=== PATIENT | female | born 1965 | race Caucasian/White ===

== ENCOUNTER 2024-04-15 16:59 | Emergency (ER) | payer BC, SELFPAY ==
--- NOTE | ~2024-04-15 | US_ITS ---
EXAMINATION: US transvaginal DATE: 04/15/2024 17:58 INDICATION: vaginal bleeding IUD placed 6 wk ago TECHNIQUE: Multiple transabdominal and endovaginal sonographic images of the pelvis were obtained. COMPARISON: None. FINDINGS: Uterus: 9.6 x 6.2 x 7.5 cm. Retroverted and retroflexed. IUD, in good position. Endometrial complex 1 3 mm. Right Ovary: 1.9 x 1.2 x 1.5 cm. Vascular flow is present. No adnexal mass. Left Ovary: 2.1 x 1.2 x 1.5 cm. Vascular flow is present. No adnexal mass. There is no free fluid in the pelvis. IMPRESSION: IUD, in good position. 13 mm thick endometrial complex, still within normal limits for the secretory phase in a premenopausal patient. Reviewed, dictated and finalized at location K. IMPRESSION: IUD, in good position. 13 mm thick endometrial complex, still within normal mcconnell its for the secretory phase in a premenopausal patient.
[2024-04-15 17:02] VITALS: BP 161/84; PULSE 84; RESP 20; TEMP 37.2; O2SAT 100
--- NOTE | 2024-04-15 17:20 | ED.FEMALEGU ---
HPI - Female Genitourinary General Chief complaint: Vaginal Bleeding Stated complaint: VAG BLEEDING, SCHEDULED FOR D&C 04/17 Time Seen by Provider: 04/15/24 17:11 History of Present Illness HPI Narrative: Pt presents with intermittent vaginal bleeding for months. Pt is scheduled for a D & C in two days. Pt had and IUD placed 6 weeks ago for the bleeding and had placement rechecked in [facility] office by sherlyn two weeks ago. Pt states that the bleeding increased over last 4 days accompanied by pelvic pain which is much more significant than it has been. Pt says the pain is making her vomit. Related Data Home Medications Medication Instructions Recorded Confirmed alprazolam 0.25 mg tablet (Xanax) 0.125 mg PO DAILY PRN 04/09/24 04/09/24 esomeprazole magnesium 20 mg 20 mg PO DAILY 04/09/24 04/09/24 capsule,delayed release (Nexium 24HR) estradiol 1 mg tablet 1 mg PO DAILY 04/09/24 04/09/24 metoprolol succinate 25 mg 25 mg PO DAILY 04/09/24 04/09/24 tablet,extended release 24 hr norethindrone acetate 5 mg tablet 5 mg PO DAILY 04/09/24 04/09/24 Allergies Allergy/AdvReac Type Severity Reaction Status Date / Time codeine Allergy Anaphylaxis Verified 04/15/24 17:11 ibuprofen Allergy Anaphylaxis Verified 04/15/24 17:11 Penicillins Allergy Anaphylaxis Verified 04/15/24 17:11 Sulfa (Sulfonamide Allergy Anaphylaxis Verified 04/15/24 17:11 Antibiotics) Review of Systems Review of Systems: All systems reviewed & are unremarkable except as noted in HPI and below PMFSH Past Medical History Medical History (Updated 04/15/24 @ 18:41 by Nila Conley III, DO) Chronic GERD Family History Family History (Updated 04/09/24 @ 14:20 by Daisy Rebolledo MA) Mother Cervical cancer Grandparent Myocardial infarction Social History Social History (Updated 04/09/24 @ 14:23 by Daisy Rebolledo MA) Years smoked: 10 Smoking status: Former smoker Additional smoking assessment comments: STOPPED AT AGE 31 Alcohol intake: current Alcohol use details: 1 DRINK EVERY THREE MONTHS / Occasional Wine Substance use: never Substance use type: does not use Do You Feel Safe in your Home?: Yes Lack of Transportation: No Lack of Food: Never True Current Housing: I Have Housing Concerned About Future Housing: No Difficulty Paying Gas/Electric Bills: No Difficulty Paying for Meds: No Currently Unemployed: No Education: Bachelor's Degree Difficulty w/ Childcare or Family Care: No Living arrangements: with family 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 identity (if verbalized by the patient): Female Agree to blood products: Yes Exam Const: General: healthy appearing and no acute distress Nutritional Appearance: well nourished Orientation/consciousness: patient oriented x3 Limitations: no limitations Eyes: Conjunctivae: conjunctivae normal EOM: EOMs intact bilaterally Neck: Neck: normal visual inspection Resp: Effort & Inspection: normal respiratory effort Auscultation: clear to auscultation bilaterally Cardio: Rate: regular rate Rhythm: regular rhythm GI: GI Palp: Yes Soft to palpation and Yes Tenderness to palpation present (GI) (low abdomen over uterus) Auscultation: normal bowel sounds Skin: General skin exam: normal color Rashes: no rashes Wounds: no wounds Neuro: General: patient oriented x3, moves all extremities, no meningeal signs and no focal motor deficits Speech: normal speech Extrem: General: normal to inspection and no clubbing, cyanosis or edema Psych: Appearance: grossly normal Mental Status: mental status grossly normal Affect: normal affect Attitude: cooperative Course Vital Signs Vital signs: Vital Signs Temperature 98.9 F 04/15/24 17:02 Pulse Rate 84 04/15/24 17:02 Respiratory Rate 20 04/15/24 17:02 Blood Pressure 161/84 H 04/15/24 17:02 Pulse Oximetry 100 04/15/24 17:02 Ox
[2024-04-15 17:27] LABS: Basophils Absolute Auto 0.1 K/mm3 (0.0-0.1); Basophils Percent Auto 0.4 % (0.2-1.2); Eosinophils Absolute Auto 0.2 K/mm3 (0-0.3); Eosinophils Percent Auto 1.4 % (0-4.4); Hematocrit 34.2 % (37.0-47.0); Hemoglobin 11.6 g/dL (12.0-15.0); Immature Granulocyte Absolute 0.08 K/mm3 (0.00-0.031); Immature Granulocyte Percent A 0.6 % (0-0.5); Lymphocytes Absolute Auto 2.27 K/mm3 (0.9-3.2); Lymphocytes Percent Auto 17.2 % (18.3-44.2); Mean Corpuscular HGB Conc 33.9 g/dl (32-36); Mean Corpuscular Hemoglobin 30.1 pg (26-34); Mean Corpuscular Volume 88.6 fl (80-100); Mean Platelet Volume 8.5 fl (7.4-10.4); Monocytes Absolute Auto 0.7 K/mm3 (0.1-0.6); Monocytes Percent Auto 5.3 % (2.6-8.5); Neutrophils Absolute Auto 9.9 K/mm3 (1.3-6.7); Neutrophils Percent Auto 75.1 % (45.5-73.1); Platelet Count Result 348 k/mm3 (150-375); Red Blood Count 3.86 M/mm3 (4.2-5.4); Red Cell Distribution Width 12.1 % (11.5-14.5); White Blood Count 13.2 K/mm3 (4.5-10.0)
[2024-04-15] MEDS: SODIUM CHLORIDE 0.9% IV 1,000 ML 999 ML IV CONT (17:32)
[2024-04-15] MEDS: ONDANSETRON INJ 4 MG/2 ML VIAL IV PUSH (17:33)
[2024-04-15] MEDS: fentaNYL CITRATE INJ (*CRX) 100 MCG/2 ML VIAL 50 MCG IV PUSH (17:34)
[2024-04-15 17:38] LABS: Alanine Aminotransferase 11 U/L (6-35); Albumin Level 4.8 g/dL (3.5-5.1); Alkaline Phosphatase 50 U/L (38-126); Anion Gap 11 mmol/L (4-12); Aspartate Amino Transferase 17 U/L (14-36); Bilirubin,Total 0.7 mg/dL (0.2-1.3); Blood Urea Nitrogen 6 mg/dL (7-17); Calcium 9.3 mg/dL (8.4-10.2); Carbon Dioxide 20 mmol/L (22-30); Chloride 108 mmol/L (98-107); Estimated CRCL calculation 79 ml/min; Estimated Glomerular Filt Rate > 60; Glucose 108 mg/dL (65-110); Potassium 3.8 mmol/L (3.4-5.0); Sodium 139 mmol/L (137-145)
[2024-04-15 17:39] LABS: Partial Thromboplastin Time 27.3 Seconds (22.3-36.8); Prothrombin Time 13.6 Seconds (11.1-14.7)
[2024-04-15 18:04] VITALS: BP 137/72; PULSE 78; RESP 16; O2SAT 97
[2024-04-15] MEDS: HYDROmorphone HCL INJ (*CRX) 1 MG/ML SYR 0.5 MG IV PUSH ×2 (18:13→18:48)
== END 2024-04-15 18:55 | disposition home or self-care (01) ==
PROVIDERS: Physician Assistant; Emergency Provider Emergency Medicine; PCP Nurse Practitioner Adult Health
DX: N93.9 Abnormal uterine and vaginal bleeding, unspecified (principal); R10.2 Pelvic and perineal pain; K21.9 Gastro-esophageal reflux disease without esophagitis; Z97.5 Presence of (intrauterine) contraceptive device; Z87.891 Personal history of nicotine dependence
CPT/HCPCS: 36415; 76830; 80053; 85025; 85610; 85730; 86850; 86900; 86901; 96361; 96374; 96375; 96376; 99284; J1170; J2405; J3010; J7030

== ENCOUNTER 2024-04-17 00:12 | Day surgery (SDC) | payer BC, SELFPAY ==
[2024-04-09 13:27] VITALS: BMI 32.8
--- NOTE | 2024-04-09 13:33 | PC.NURSE ---
Report to the Outpatient Waiting Room, entrance under the green pavilion located off [facility], at time ___1000____ on date 04/17/24__. Planned Procedure Time: __1200_. Time changes happen often and if your time is changed the preop area will call you the afternoon before. - You and your visitor will be asked to self-screen and do not enter if you have any COVID symptoms. - A mask is optional within the hospital at this time. Patients may have clear liquids (water, carbonated beverages, clear teas, apple juice) until 3 hours prior to surgery with a maximum of 20 ounces. - No food from midnight until time of surgery - Infants may have breast milk until 4 hours before surgery, infant formula 6 hours prior to surgery. - Children will be allowed to drink immediately following surgery. If applicable, please bring a bottle or sippy cup to assist with drinking. Juice, water, soda, and popsicles are readily available. For infants on formula, please bring formula the day of surgery. Pacifiers are allowed. Take the following medications with a SIP of water the morning of surgery: METOPROLOL DO NOT STOP ANY OF YOUR OTHER PRESCRIPTION MEDICATIONS PRIOR TO SURGERY ?EXCEPT THE FOLLOWING Medications to discontinue per physician NONE Date to take last dose Please no make-up, nail palauan, hairspray, perfume, deodorant, or body powder the day of surgery. No jewelry (including any body piercings) or valuables the day of surgery, leave them at home. Please take a shower or bath the night before, or the morning of, surgery with an antibacterial soap. Wear comfortable, loose fitting clothing. Children are encouraged to wear pajamas. - Jewelry must be removed prior to entering the operating room. Rings and piercings that are not removed may be cut off. - The hospital will not accept responsibility for valuables. - Please leave all valuables, including medications, at home the day of surgery. If you are going home after surgery, a licensed driver service technician must drive you home. - NO public transportation without another adult if you receive anesthesia. - We recommend that an adult stay with you for 24 hours following discharge. - We also recommend that you do not drive, make important decision, drink alcoholic beverages, or take any drugs that were not prescribed by your health care provider for at least 24 hours after your discharge time. For Pediatric surgeries, we recommend two adults accompany the child home. Follow any additional instructions given to you from your surgeon. If you or anyone in your household have experienced Covid symptoms in the past week, please notify your surgeon or the nurse liaison at the phone number below for possible testing. Telephone instructions given to PATIENT_and asked if any additional questions and then verbalized understanding. Patient advised to call surgeon office or pre surgery nurse liaison [phone] if any additional questions.
[2024-04-17 10:19] VITALS: BP 147/81; PULSE 84; RESP 16; TEMP 37.3; O2SAT 100
[2024-04-17 10:20] VITALS: BMI 31.8
[2024-04-17] MEDS: LACTATED RINGERS 1,000 ML 30 ML IV CONT (10:52)
[2024-04-17] MEDS: ACETAMINOPHEN 500 MG TABLET 1000 MG PO (10:53)
--- NOTE | 2024-04-17 11:36 | WPDANESEPPF ---
Anes - Initial Pre Proc Eval Procedure: Operation Date: 04/17/24 12:00 Proposed Procedures p Hysteroscopy Dilation and Curettage - Juan Johnson MD Date/Time: 04/17/24 11:36 Surgeon: Juan Johnson MD Pre Op Diagnosis: Post Menopausal Bleeding Patient Data Age: 58 Gender: F Height: 1.7 m Weight: 92.3 kg Last Vital Signs Temp 99.1 F 04/17/24 10:19 Pulse 84 04/17/24 10:19 Resp 16 04/17/24 10:19 BP 147/81 H 04/17/24 10:19 Pulse Ox 100 04/17/24 10:19 Allergies Allergy/AdvReac Type Severity Reaction Status Date / Time codeine Allergy Anaphylaxis Verified 04/17/24 10:45 ibuprofen Allergy Anaphylaxis Verified 04/17/24 10:45 Penicillins Allergy Anaphylaxis Verified 04/17/24 10:45 Sulfa (Sulfonamide Allergy Anaphylaxis Verified 04/17/24 10:45 Antibiotics) Home Medications Medication Instructions Recorded Confirmed Type alprazolam 0.25 mg tablet (Xanax) 0.125 mg PO DAILY PRN Anxiety 04/09/24 04/17/24 History esomeprazole magnesium 20 mg 20 mg PO DAILY 04/09/24 04/17/24 History capsule,delayed release (Nexium 24HR) estradiol 1 mg tablet 1 mg PO DAILY 04/09/24 04/17/24 History metoprolol succinate 25 mg 25 mg PO DAILY 04/09/24 04/17/24 History tablet,extended release 24 hr norethindrone acetate 5 mg tablet 5 mg PO DAILY 04/09/24 04/17/24 History oxycodone-acetaminophen 5 mg-325 1 tablet PO Q6H PRN pain #14 tabs 04/15/24 04/17/24 Rx mg tablet (Percocet) Patient hx anesthesia problems: none Family hx anesthesia problems: none Results Review: All pre-operative results and documents have been reviewed as part of the pre-operative evaluation. [facility] Past Medical History Medical History Chronic GERD Family History Family History Mother Cervical cancer Grandparent Myocardial infarction Social History Social History Years smoked: 10 Smoking status: Former smoker Additional smoking assessment comments: STOPPED AT AGE 31 Alcohol intake: current Alcohol use details: 1 DRINK EVERY THREE MONTHS / Occasional Wine Substance use: never Substance use type: does not use Do You Feel Safe in your Home?: Yes Lack of Transportation: No Lack of Food: Never True Current Housing: I Have Housing Concerned About Future Housing: No Difficulty Paying Gas/Electric Bills: No Difficulty Paying for Meds: No Currently Unemployed: No Education: Bachelor's Degree Difficulty w/ Childcare or Family Care: No Living arrangements: with family 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 identity (if verbalized by the patient): Female Agree to blood products: Yes Anes - Eval Final PreProcedure Day of Procedure 04/17/24 11:36 Patient weight: overweight Heart: regular rate and rhythm Lungs: clear to auscultation Airway: Mallampati scale Neurological: alert and oriented Last oral intake: >/= 8 hours ASA classification: II Emergent: no Anesthetic plan: proceed Anesthesia type and monitoring: general GIVS and standard monitoring Results Review: All pre-operative results and documents have been reviewed as part of the pre-operative evaluation. Pt on b beni for electrical disorder , has been on for many (20 years), and walks 4 miles/day, no cp or sob. Informed Consent: The patient's anesthetic plan and its attendant risks and benefits were discussed with the patient/family/POA. Questions were solicited and answers provided to the satisfaction of the patient/family/POA.
--- NOTE | 2024-04-17 11:58 | PM.IMHP ---
H&P: HPI History of Present Illness Date/Time: 04/17/24 11:58 Chief Complaint: postmenopausal bleeding Narrative: Patient is a 58 year old female who presents with postmenopausal bleeding. She reports episodes of bleeding following unopposed estrogen HRT x2 years. EMB demonstrated disordered proliferative endometrium and IUD was placed for bleeding control and endometrial protection without improvement. She has continued to have intermittently heavy bleeding since IUD placement. Endometrial lining has thickened since prior ultrasound. Denies headaches, vision changes. Abdominal pain and vomiting since last week. Review of Systems Review of Systems: All systems reviewed & are unremarkable except as noted in HPI and below PMFSH Past Medical History Medical History Chronic GERD Family History Family History Mother Cervical cancer Grandparent Myocardial infarction Social History Social History Years smoked: 10 Smoking status: Former smoker Additional smoking assessment comments: STOPPED AT AGE 31 Alcohol intake: current Alcohol use details: 1 DRINK EVERY THREE MONTHS / Occasional Wine Substance use: never Substance use type: does not use Do You Feel Safe in your Home?: Yes Lack of Transportation: No Lack of Food: Never True Current Housing: I Have Housing Concerned About Future Housing: No Difficulty Paying Gas/Electric Bills: No Difficulty Paying for Meds: No Currently Unemployed: No Education: Bachelor's Degree Difficulty w/ Childcare or Family Care: No Living arrangements: with family 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 identity (if verbalized by the patient): Female Agree to blood products: Yes Meds Home Medications and Allergies Home Medications Medication Instructions Recorded Confirmed Type alprazolam 0.25 mg tablet (Xanax) 0.125 mg PO DAILY PRN Anxiety 04/09/24 04/17/24 History esomeprazole magnesium 20 mg 20 mg PO DAILY 04/09/24 04/17/24 History capsule,delayed release (Nexium 24HR) estradiol 1 mg tablet 1 mg PO DAILY 04/09/24 04/17/24 History metoprolol succinate 25 mg 25 mg PO DAILY 04/09/24 04/17/24 History tablet,extended release 24 hr norethindrone acetate 5 mg tablet 5 mg PO DAILY 04/09/24 04/17/24 History oxycodone-acetaminophen 5 mg-325 1 tablet PO Q6H PRN pain #14 tabs 04/15/24 04/17/24 Rx mg tablet (Percocet) Allergies Allergy/AdvReac Type Severity Reaction Status Date / Time codeine Allergy Anaphylaxis Verified 04/17/24 10:45 ibuprofen Allergy Anaphylaxis Verified 04/17/24 10:45 Penicillins Allergy Anaphylaxis Verified 04/17/24 10:45 Sulfa (Sulfonamide Allergy Anaphylaxis Verified 04/17/24 10:45 Antibiotics) Vital Signs Vital Signs - 24 hr 04/17/24 10:19 Temperature 99.1 F Pulse Rate 84 Respiratory Rate 16 Blood Pressure 147/81 H Pulse Oximetry 100 Exam Const: General: comfortable and no acute distress HENMT: Mouth: Yes moist mucous membranes Resp: Effort & Inspection: normal respiratory effort Cardio: Rate: regular rate Rhythm: regular rhythm GI: GI Palp: Yes Soft to palpation and No Tenderness to palpation present (GI) Skin: General skin exam: normal color Extrem: General: normal to inspection Psych: Mental Status: mental status grossly normal Assessment and Plan Assessment and plan (1) Postmenopausal bleeding: Code(s): N95.0 - Postmenopausal bleeding Status: Acute Assessment and Plan: - after unopposed estrogen usage - unresponsive to medical management - endometrial lining thickening; EMB with disordered proliferative endometrium - recommend hysteroscopy, D&C and IUD removal for diagnosis and treatment. Risks and benefits discussed with patient who elect
--- NOTE | 2024-04-17 12:01 | WPDHPUPDATE1 ---
History and Physical Update Update Date/Time: 04/17/24 12:01 History and Physical has been reviewed, including an updated exam of the patient. There are NO changes in the patient's condition. Risks, benefits, and alternatives have been discussed and questions answered. Patient agrees to proceed with procedure.
--- NOTE | 2024-04-17 12:08 | W.PM.PROC2 ---
Procedure Note - Detailed Date of Procedure 04/17/24 Pre-op Diagnosis Post Menopausal Bleeding Post-op Diagnosis Same Procedure Performed hysteroscopy, D&C, and IUD removal Surgeon Juan Johnson MD Anesthesia MAC Indications postmenopausal bleeding Findings Thickened and heterogenous endometrium throughout cavity, IUD in endometrial cavity Description of Procedure The patient was then taken to the operating room with IVFs running. She was placed in the dorsal supine position where she received MAC without any difficulty.?? The patient was placed in the dorsal lithotomy position using zeina stirrups. EUA revealed the above findings. She was then prepped and draped in a normal sterile fashion. A time-out procedure was performed and all members of the OR team agreed on the patient and plan. A bivalved speculum was then inserted into the patient's vagina.? The anterior lip of the cervix was grasped with a single tooth tenaculum. A paracervical block of 1% lidocaine with epinephrine was injected. At this point, the hysteroscope was then inserted into the uterine cavity. Saline was used as the distension medium. The above findings were noted. Both tubal ostia were visualized and pictures were taken.?The IUD was removed using hysteroscopic forceps. The hysteroscope was then removed. At this point, utilizing a medium sized endometrial curette, a sharp curettage was performed and the specimen sent to pathology.?The hysteroscope was reinserted and a global curettage using the morcellation device was performed and specimen was also sent to pathology. The hysteroscope was removed. The tenaculum was removed; the anterior lip of the cervix was hemostatic.? The speculum was then removed. The patient tolerated the procedure well.? Sponge, lap, needle, and instrument counts were correct X2.? The patient was taken out of the dorsal lithotomy position and awakened from anesthesia and taken to the recovery room in stable condition. Pathology Yes Complications No immediate complications Condition Stable Disposition Same day
[2024-04-17] MEDS: LIDO 1%/EPINEPHRINE 1:100,000 50 ML VIAL 10 ML INFILTRATE (12:28)
[2024-04-17 12:52] VITALS: BP 136/73; PULSE 95; RESP 16; O2SAT 96
[2024-04-17 13:15] VITALS: BP 125/83; PULSE 87; RESP 16; O2SAT 100
[2024-04-17] MEDS: oxyCODONE HCL (*CRX) 5 MG TAB IR PO (13:22)
[2024-04-17 13:45] VITALS: BP 119/65; PULSE 87; RESP 16
== END 2024-04-17 14:04 | disposition home or self-care (01) ==
PROVIDERS: PCP Nurse Practitioner Adult Health; Visit Provider Obstetrics & Gynecology
PROC: 0U5B8ZZ Destruction of Endometrium, Via Natural or Artificial Opening Endoscopic (ICD-10-PCS; CPT 58563; principal; 2024-04-17 12:00)
DX: N95.0 Postmenopausal bleeding (principal); Z30.432 Encounter for removal of intrauterine contraceptive device; K21.9 Gastro-esophageal reflux disease without esophagitis; Z87.891 Personal history of nicotine dependence
CPT/HCPCS: 58558; 88300; 88305; A9270; J1100; J1200; J2250; J2405; J2704; J3010; J7120

== ENCOUNTER 2024-09-10 09:41 | Outpatient (CLI) | payer BC, SELFPAY ==
[2024-09-10 20:30] LABS: Free T4 Free Thyroxine 1.08 ng/mL (0.78-2.19)
[2024-09-14 18:09] LABS: Thyroid Peroxidase Antibodies 1 IU/mL (<9)
== END 2024-09-10 09:42 | disposition home or self-care (01) ==
LOC: ANHBWCLAB 09:42
PROVIDERS: PCP Nurse Practitioner Adult Health; Visit Provider Nurse Practitioner Adult Health
DX: R63.5 Abnormal weight gain (principal); Z13.9 Encounter for screening, unspecified
CPT/HCPCS: 36415; 84439; 86376